=== PATIENT | female | born 1950 | race Caucasian/White ===

== ENCOUNTER 2017-08-13 15:04 | Outpatient (CLI) | payer MEDICARE, OTHER ==
--- NOTE | 2017-08-13 17:01 | MRI Report ---
EXAM: RIGHT SHOULDER MRI WITHOUT CONTRAST EXAM DATE: 08/13/2017 03:46 PM. CLINICAL HISTORY: Previous rotator cuff repair surgery. Right shoulder pain. Concern for recurrent te ar. COMPARISON: Right shoulder radiography from 08/07/2017 and right shoulder MRI from 08/28/2013. TECHNIQUE: Multiplanar, multisequence T1-weighted and fluid-sensitive sequences of the shoulder witho ut contrast. Other: None. FINDINGS: Acromioclavicular Region: The acromion is type II. Slight deformity of the distal end of the clavicle which may be from previous old fracture injury. Small bone fragment at the superior aspect of the ac romioclavicular joint which may represent an old ununited fracture or accessory ossicle. Similar find ings are seen on the previous study. The coracoacromial and coracoclavicular ligaments are intact. Sm all amount of fluid at the subacromial subdeltoid bursa. Glenohumeral Region: No subluxation. Very small glenohumeral joint effusion. No loose bodies. The art icular cartilage is unremarkable. The glenohumeral ligaments and joint capsule are unremarkable. Bone Marrow: Metallic anchor sutures at the greater tuberosity and humeral head from previous rotator cuff repair. No acute fracture or bone lesions. Labrum: Blunting at the free edge of the superior labrum which may be degenerative or postoperative. Otherwise, the labrum is unremarkable on this non-arthrographic exam. Musculature/Rotator Cuff: Evaluation of the supraspinatus tendon is slightly technically limited due to postoperative artifacts. However, there is low-grade articular surface fraying at the supraspinatu s tendon. No definite full thickness tear. Infraspinatus, teres minor, and subscapular tendons are un remarkable. No edema or fatty atrophy. Biceps Tendon: The long head biceps tendon is not seen within the bicipital groove, which may be due to previous biceps tendon rupture or tendon release. Similar findings are seen in the previous study . Other: The subcutaneous tissues are unremarkable. IMPRESSION: 1. Low-grade articular surface fraying at the supraspinatus tendon. 2. Slight deformity of the distal end of the clavicle which may be from previous old fracture injury. Small bone fragment at the superior aspect of the acromioclavicular joint which may represent an old ununited fracture or accessory ossicle. No change. 3. Small amount of fluid of the subacromial subdeltoid bursa. Very small glenohumeral joint effusion. 4. Blunting at the free edge of the superior labrum, which may be degenerative or postoperative. 5. Nonvisualization of the long head biceps tendon which may be due to previous biceps tendon rupture or tendon release. No change. [facility] Referring Provider Line: [phone] SITE ID: [id number]
== END 2017-08-13 15:05 | disposition home or self-care (01) ==
LOC: DI 15:04
PROVIDERS: ATTEND Orthopaedic Surgery
DX: M25.511 Pain in right shoulder (principal); M75.101 Unspecified rotator cuff tear or rupture of right shoulder, not specified as traumatic

== ENCOUNTER 2017-12-10 15:43 | Outpatient (CLI) | payer MEDICARE, OTHER ==
--- NOTE | 2017-12-11 14:01 | Ultrasound Report ---
Reason: PAIN BEHIND RIGHT KNEE R/O SCHMIDT'S CYST Procedure Date: 12/10/2017 Accession Number: [id number] / [id number] Procedure: US - Ext Limited Non Vascular CPT Code: FULL RESULT: EXAM: RIGHT KNEE ULTRASOUND - LIMITED EXAM DATE: 12/10/2017 04:33 PM. CLINICAL HISTORY: Pain behind right knee; rule out Schmidt's cyst. COMPARISON: None. TECHNIQUE: Real-time scanning was performed with static images obtained. FINDINGS: A simple cyst without vascularity on this limited color Doppler is identified in the popliteal fossa and measures 2 cm x 1.1 cm x 0.6 cm. The cystic structure does appear to arise adjacent to the medial head of the gastrocnemius, suggestive of Schmidt's cyst. 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 [facility]
== END 2017-12-10 15:44 | disposition home or self-care (01) ==
LOC: DI 15:43
PROVIDERS: ATTEND Family Medicine
DX: M71.21 Synovial cyst of popliteal space [Baker], right knee (principal)
CPT/HCPCS: 76882